=== PATIENT | male | born 1970 | race Caucasian/White ===

== ENCOUNTER 2021-10-18 00:52 | Day surgery (SDC) | payer OTHER, SELFPAY ==
[2021-10-17 09:19] VITALS: BMI 29.1
--- NOTE | 2021-10-17 09:35 | PC.NURSE ---
Addendum entered by Silvana Landry RN 10/17/21 09:37: JUNE SHOWER MORNING OF SURGERY Original Note: Report to the Outpatient Waiting Room, entrance under the green pavilion located off [facility], at time 1045 on date 10/18/21. OR Time: 1245. - You and your visitor will be asked a series of questions to screen for COVID 19 for your protection. - A mask is required within the hospital. One visitor will be allowed to accompany the patient into the hospital. Patients visitor will be instructed to remain with patient at all times or leave the building. We will allow the visitor to come back to the postoperative area when patient is ready. Preoperative COVID Testing Requirements: No COVID Test needed if: (proof is required; if not received patient will have Rapid Test prior to entry) - Patient has received COVID Vaccine at least 14 days prior to procedure date or - Patient has positive COVID test result within last 90 days of surgery date. COVID Test needed if above criteria is not met Patients may have clear liquids (water, carbonated beverages, clear teas, apple juice) until 3 hours prior to surgery with a maximum of 20 ounces. - No food from midnight until time of surgery Take the following medications with a SIP of water the morning of surgery: METOPROLOL Medications to discontinue per physician: N/A Date to take last dose: N/A Please no make-up, nail tristanian, hairspray, perfume, deodorant, or body powder the day of surgery. No jewelry (including any body piercings) or valuables the day of surgery, leave them at home. Please take a shower or bath the night before, or the morning of, surgery with an antibacterial soap. Wear comfortable, loose fitting clothing. - Jewelry must be removed prior to entering the operating room. Rings and piercings that are not removed may be cut off. - The hospital will not accept responsibility for valuables. - Please leave all valuables, including medications, at home the day of surgery. If you are going home after surgery, a licensed diesel truck driver must drive you home. - NO public transportation without another adult. - We recommend that an adult stay with you for 24 hours following discharge. - We also recommend that you do not drive, make important decision, drink alcoholic beverages, or take any drugs that were not prescribed by your health care provider for at least 24 hours after your discharge time. Follow any additional instructions given to you from your surgeon. Telephone instructions given to PRIMO SANTAMARIA and asked if any additional questions and then verbalized understanding. Patient advised to call surgeon office or pre surgery nurse liaison [phone] if any additional questions.
--- NOTE | 2021-10-17 14:16 | WPDANESEPPF ---
Anes - Initial Pre Proc Eval Procedure: Operation Date: 10/18/21 12:45 Proposed Procedures p Open Umbilical Hernia Repair with Mesh - Marylin Peoples MD Date/Time: 10/17/21 14:16 Surgeon: Marylin Peoples MD Pre Op Diagnosis: umbilical hernia Patient Data Age: 50 Gender: M Height: 1.83 m Weight: 97.52 kg Allergies Allergy/AdvReac Type Severity Reaction Status Date / Time No Known Allergies Allergy Verified 10/18/21 11:09 Home Medications Medication Instructions Recorded Confirmed Type dextroamphetamine-amphetamine 30 30 mg PO DAILY 09/27/21 10/18/21 History mg tablet irbesartan 300 1 tablet PO DAILY 09/27/21 10/18/21 History mg-hydrochlorothiazide 12.5 mg tablet metoprolol succinate 100 mg 100 mg PO DAILY 09/27/21 10/18/21 History tablet,extended release 24 hr rosuvastatin 20 mg tablet 20 mg PO DAILY 09/27/21 10/18/21 History Patient hx anesthesia problems: none Family hx anesthesia problems: none Results Review: All pre-operative results and documents have been reviewed as part of the pre-operative evaluation. [facility] Past Medical History Medical History (Updated 10/17/21 @ 14:17 by Charles Lovell DO) Atrial fibrillation High cholesterol Hypertension Prostate cancer TIA (transient ischemic attack) Surgical History Surgical History History of open heart surgery History of prostate biopsy History of tonsillectomy Hx of prior ablation treatment cardiac ablation Family History Family History Father Malignant neoplasm of prostate Diabetes mellitus Hypertension Mother Heart disease Sibling Malignant neoplasm of prostate Social History Social History Smoking packs per day: 1 Smoking cigarettes per day: 20.0 Years smoked: 30 Smoking pack-years: 30.00 Smoking status: Former smoker Tobacco type: cigarettes Smoking end date: 09/24/21 Alcohol intake: current Drinks per week: 14 Alcohol use details: BEER OR VODKA Substance use: current Substance use type: marijuana Living arrangements: with family 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 Informed Consent: The patient's anesthetic plan and its attendant risks and benefits were discussed with the patient/family/POA. Questions were solicited and answers provided to the satisfaction of the patient/family/POA.
[2021-10-18] VITALS (7 sets, daily range): BP systolic 147–177; BP diastolic 82–98; PULSE 57–71; RESP 16–18; TEMP 36.2–36.5; O2SAT 100
--- NOTE | 2021-10-18 11:10 | ECG_ITS ---
Measurements Intervals Trail Rate: 68 P: 12 SC: 154 QRS: 29 QRSD: 96 T: 39 QT: 412 QTc: 440 Interpretive Statements SINUS RHYTHM POSSIBLE INFERIOR MYOCARDIAL INFARCTION , OF INDETERMINATE AGE [30 ms Q WAVE IN II/aVF] ABNORMAL ECG NO PREVIOUS ECG AVAILABLE FOR COMPARISON Electronically Signed On 10-18-2021 16:59:56 CDT by Jeff Johnson M.D.
[2021-10-18] MEDS: ACETAMINOPHEN 500 MG TABLET 1000 MG PO (11:53)
[2021-10-18] MEDS: LACTATED RINGERS 1,000 ML 30 ML IV CONT ×2 (12:00→14:22)
[2021-10-18] MEDS: KETOROLAC 15 MG/ML VIAL (*BKC) IV PUSH (12:07)
[2021-10-18 12:14] LABS: Anion Gap 9 mmol/L (8-16); Blood Urea Nitrogen 18 mg/dL (9-20); Calcium 8.9 mg/dL (8.4-10.2); Carbon Dioxide 23 mmol/L (22-30); Chloride 102 mmol/L (98-107); Estimated CRCL calculation 119 ml/min; Estimated Glomerular Filt Rate > 60; Glucose 108 mg/dL (65-110); Potassium 4.2 mmol/L (3.4-5.0); Sodium 134 mmol/L (137-145)
--- NOTE | 2021-10-18 12:24 | WPDHPUPDATE1 ---
History and Physical Update Update Date/Time: 10/18/21 12:24 History and Physical has been reviewed, including an updated exam of the patient. There are NO changes in the patient's condition. Risks, benefits, and alternatives have been discussed and questions answered. Patient agrees to proceed with procedure.
[2021-10-18] MEDS: ceFAZolin 2 GM/D5W 50 ML 2 GM/50 ML BAG IVPB (13:24)
[2021-10-18] MEDS: BUPIVACAINE/EPINEPHRINE 0.25% 10 ML VIAL 30 ML INFILTRATE (14:02)
--- NOTE | 2021-10-18 14:11 | W.PM.PROC2 ---
Procedure Note - Detailed Date of Procedure 10/18/21 Pre-op Diagnosis incarcerated umbilical hernia Post-op Diagnosis Same Procedure Performed repair of incarcerated umbilical hernia with mesh Surgeon Marylin Peoples MD Anesthesia General Indications 50 y/o M c incarcerated umbilical hernia Findings incarcerated umbilical hernia c omentum and adjacent loop of SB Description of Procedure The patient was taken to the operating room placed in the supine position. After adequate induction of general anesthesia, the patient was prepped and draped in the normal sterile fashion. A time-out was then done to verify the patient's identity, as well as the procedure being performed. I began by localizing the area around the umbilicus. I then made a curvilinear incision in the infraumbilical fold. This was taken down to level fascia. I then was able to bluntly dissect around the umbilicus. I then carefully dissected the umbilicus off the underlying fascia. I then noted a small defect with incarcerated omentum and an adjacent loop of small intestine. I was able to mobilize the incarcerated tissue and reduce it back into the abdominal cavity. This left an approximately 2 cm defect. I then placed a 4.6 cm round piece of ventralex mesh in the underlay position. This was noted to have good, wide local coverage of the defect. I then closed this defect primarily with interrupted 0 Ethibond suture over the underlay mesh repair. I then reapproximated the umbilicus to the fascia with a 3 0 Vicryl U-stitch. The subcutaneous tissue was then closed with 3 0 Vicryl suture. The skin was closed with 4 0 Monocryl subcuticular suture. Dermabond was then placed on the wound. The patient tolerated the procedure well was extubated in the operating room postop. She will be transferred to the recovery room in stable condition. Implants 4.6 cm ventralex mesh in underlay position Estimated Blood Loss 5 Drains No Packing No Pathology None sent Complications No immediate complications Condition Stable Disposition PACU
--- NOTE | 2021-10-18 15:21 | SUR.PHASEII ---
CORRECTION: PATIENT OFF OXYGEN SINCE 1440; SATS 100%.
== END 2021-10-18 16:02 | disposition home or self-care (01) ==
PROVIDERS: PCP Emergency Medicine; Visit Provider Surgery
PROC: (CPT 49587; principal; 2021-10-18 12:45)
DX: K42.0 Umbilical hernia with obstruction, without gangrene (principal); I10 Essential (primary) hypertension; E78.00 Pure hypercholesterolemia, unspecified; Z86.73 Personal history of transient ischemic attack (TIA), and cerebral infarction without residual deficits; Z85.46 Personal history of malignant neoplasm of prostate; Z87.891 Personal history of nicotine dependence; F12.90 Cannabis use, unspecified, uncomplicated
CPT/HCPCS: 49587; 36415; 80048; 93005; A9270; C1781; J0690; J1100; J1885; J2250; J2405; J2704; J2710; J3010; J7120

== ENCOUNTER 2024-06-11 01:43 | Day surgery (SDC) | payer BC, SELFPAY ==
[2024-05-17 14:54] VITALS: BMI 27.1
--- NOTE | 2024-06-07 14:08 | PC.NURSE ---
Preop phone call with patient. Patient denies any changes to health history or medications since last pre op phone call. Verified medications, prep and day of instructions. Patient verbalized understanding in regards to teaching.
[2024-06-11 10:06] VITALS: BP 123/79; PULSE 60; RESP 20; TEMP 36.3; O2SAT 100; BMI 27.6
[2024-06-11] MEDS: GENTAMICIN 80MG/SOD CHL 50 ML 80 MG/50 ML BAG 100 MG IVPB (10:10)
[2024-06-11] MEDS: LACTATED RINGERS 1,000 ML 150 ML IV CONT (10:17)
--- NOTE | 2024-06-11 10:26 | P.PNAN_ITS ---
Anes - Initial Pre Proc Eval Procedure: Operation Date: 06/11/24 11:00 Proposed Procedures p Screening Colonoscopy - Akhil Valencia MD Date/Time: 06/11/24 10:26 Surgeon: Akhil Valencia MD Pre Op Diagnosis: Neoplasm screening Patient Data Age: 53 Gender: M Height: 1.83 m Weight: 92.6 kg Last Vital Signs Temp 97.4 F L 06/11/24 10:06 Pulse 60 06/11/24 10:06 Resp 20 06/11/24 10:06 BP 123/79 06/11/24 10:06 Pulse Ox 100 06/11/24 10:06 O2 Del Method Room Air 06/11/24 10:06 Allergies Allergy/AdvReac Type Severity Reaction Status Date / Time No Known Allergies Allergy Verified 06/11/24 10:04 Home Medications Medication Instructions Recorded Confirmed Type dextroamphetamine-amphetamine 30 30 mg PO DAILY 09/27/21 06/11/24 History mg tablet (Adderall) irbesartan 300 1 tablet PO DAILY 09/27/21 06/11/24 History mg-hydrochlorothiazide 12.5 mg tablet metoprolol succinate 100 mg 100 mg PO DAILY 09/27/21 06/11/24 History tablet,extended release 24 hr rosuvastatin 20 mg tablet 20 mg PO DAILY 09/27/21 06/11/24 History amlodipine 10 mg tablet 10 mg PO DAILY 05/17/24 06/11/24 History famotidine 20 mg tablet 20 mg PO DAILY 05/17/24 06/11/24 History folic acid 1 mg tablet 1 mg PO DAILY 05/17/24 06/11/24 History hydroxyzine HCl 25 mg tablet 25 mg PO TID 05/17/24 06/11/24 History tadalafil 5 mg tablet 5 mg PO BID 05/17/24 06/11/24 History Patient hx anesthesia problems: none Family hx anesthesia problems: none Results Review: All pre-operative results and documents have been reviewed as part of the pre- operative evaluation. [facility] Past Medical History Medical History Atrial fibrillation High cholesterol Hypertension Prostate cancer TIA (transient ischemic attack) Surgical History Surgical History H/O umbilical hernia repair OPEN W MESH 10/18/21 History of open heart surgery History of prostate biopsy History of tonsillectomy Hx of prior ablation treatment cardiac ablation Family History Family History Father Malignant neoplasm of prostate Diabetes mellitus Hypertension Mother Heart disease Sibling Malignant neoplasm of prostate Social History Social History Smoking packs per day: 1 Smoking cigarettes per day: 20.0 Years smoked: 30 Smoking pack-years: 30.00 Smoking status: Former smoker Tobacco type: cigarettes Smokeless tobacco user: chewing tobacco Smoking end date: 09/24/21 Alcohol intake: former Drinks per week: 14 Alcohol use details: BEER OR VODKA Substance use: current Substance use type: marijuana Living arrangements: with family Occupation/Education: occupation 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 Afib s/p ablation, still on b ceasar, HTN, hyperlipidemia, hx of TIA and staph endocarditis. Pt getting preop abx. Informed Consent: The patient's anesthetic plan and its attendant risks and benefits were discussed with the patient/family/POA. Questions were solicited and answers provided to the satisfaction of the patient/family/POA.
--- NOTE | 2024-06-11 10:42 | P.HP_ITS ---
History of Present Illness History of Present Illness Consent: Risks, benefits, and alternatives have been discussed and questions answered. Patient agrees to proceed with procedure. Chief complaint: Neoplasm screening Narrative: Bhupinder Palma is a 53 year old male here for first screening colonoscopy Review of Systems Review of Systems: All systems reviewed & are unremarkable except as noted in HPI and below PMFSH Past Medical History Medical History (Updated 06/11/24 @ 10:43 by Akhil Valencia MD) Atrial fibrillation Colon cancer screening High cholesterol Hypertension Prostate cancer TIA (transient ischemic attack) Surgical History Surgical History H/O umbilical hernia repair OPEN W MESH 10/18/21 History of open heart surgery History of prostate biopsy History of tonsillectomy Hx of prior ablation treatment cardiac ablation Family History Family History Father Malignant neoplasm of prostate Diabetes mellitus Hypertension Mother Heart disease Sibling Malignant neoplasm of prostate Social History Social History Smoking packs per day: 1 Smoking cigarettes per day: 20.0 Years smoked: 30 Smoking pack-years: 30.00 Smoking status: Former smoker Tobacco type: cigarettes Smokeless tobacco user: chewing tobacco Smoking end date: 09/24/21 Alcohol intake: former Drinks per week: 14 Alcohol use details: BEER OR VODKA Substance use: current Substance use type: marijuana Living arrangements: with family Occupation/Education: occupation 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[employer] Spiritual care concerns: No Meds Home Medications and Allergies Home Medications Medication Instructions Recorded Confirmed Type dextroamphetamine-amphetamine 30 30 mg PO DAILY 09/27/21 06/11/24 History mg tablet (Adderall) irbesartan 300 1 tablet PO DAILY 09/27/21 06/11/24 History mg-hydrochlorothiazide 12.5 mg tablet metoprolol succinate 100 mg 100 mg PO DAILY 09/27/21 06/11/24 History tablet,extended release 24 hr rosuvastatin 20 mg tablet 20 mg PO DAILY 09/27/21 06/11/24 History amlodipine 10 mg tablet 10 mg PO DAILY 05/17/24 06/11/24 History famotidine 20 mg tablet 20 mg PO DAILY 05/17/24 06/11/24 History folic acid 1 mg tablet 1 mg PO DAILY 05/17/24 06/11/24 History hydroxyzine HCl 25 mg tablet 25 mg PO TID 05/17/24 06/11/24 History tadalafil 5 mg tablet 5 mg PO BID 05/17/24 06/11/24 History Allergies Allergy/AdvReac Type Severity Reaction Status Date / Time No Known Allergies Allergy Verified 06/11/24 10:04 Vital Signs Vital Signs - 24 hr 06/11/24 10:06 Temperature 97.4 F L Pulse Rate 60 Respiratory Rate 20 Blood Pressure 123/79 Pulse Oximetry 100 Oxygen Delivery Room Air Exam Const: General: comfortable and no acute distress HENMT: Face/Nose/Sinus: Normal nares present Eyes: General: appearance normal, both eyes and all related structures Neck: Neck: no JVD Resp: Auscultation: clear to auscultation bilaterally Cardio: Rate: regular rate Rhythm: regular rhythm GI: Inspection: non-distended GI Palp: Yes Soft to palpation Skin: General skin exam: normal color Neuro: General: gait normal Speech: normal speech Extrem: General: normal to inspection Psych: Mental Status: mental status grossly normal Assessment and Plan Assessment and plan (1) Colon cancer screening: Code(s): Z12.11 - Encounter for screening for malignant neoplasm of colon Status: Acute Assessment and Plan: colonoscopy
[2024-06-11 11:03] VITALS: BP 95/59; PULSE 68; RESP 20; O2SAT 97
[2024-06-11 11:13] VITALS: BP 108/74; PULSE 56; RESP 14; O2SAT 99
[2024-06-11 11:23] VITALS: BP 118/77; PULSE 63; RESP 16; O2SAT 100
== END 2024-06-11 11:40 | disposition home or self-care (01) ==
PROVIDERS: PCP Emergency Medicine; Visit Provider Internal Medicine Gastroenterology
PROC: 0DJD8ZZ Inspection of Lower Intestinal Tract, Via Natural or Artificial Opening Endoscopic (ICD-10-PCS; CPT 45378; principal; 2024-06-11 11:00)
DX: Z12.11 Encounter for screening for malignant neoplasm of colon (principal); K64.8 Other hemorrhoids; I10 Essential (primary) hypertension; E78.00 Pure hypercholesterolemia, unspecified; I48.91 Unspecified atrial fibrillation; F12.90 Cannabis use, unspecified, uncomplicated; F17.220 Nicotine dependence, chewing tobacco, uncomplicated; Z98.890 Other specified postprocedural states; Z86.79 Personal history of other diseases of the circulatory system; Z85.46 Personal history of malignant neoplasm of prostate; Z80.42 Family history of malignant neoplasm of prostate; Z82.49 Family history of ischemic heart disease and other diseases of the circulatory system
CPT/HCPCS: 45378; J1580; J2003; J2704; J7120